=== PATIENT | male | born 1995 | race Caucasian/White ===

== ENCOUNTER 2024-12-11 14:56 | Outpatient (CLI) | payer MEDICAID ==
--- NOTE | 2024-12-11 16:15 | RADIOLOGY REPORT ---
EXAM: MR MRI LOWER EXTREMITY LEFT knee INDICATION: PAIN IN LEFT KNEE, INSTABILITY OF L KNEE JOINT TECHNIQUE: Multiplanar and multisequence MR imaging of the left ankle was performed in the absence of gadolinium contrast. COMPARISON: None FINDINGS: There is a bucket-handle tear in the free edge of the medial meniscus. There is also horizontal tear in the posterior horn of the medial meniscus extending into the posterior root of the medial meniscus The lateral meniscus is intact The posterior cruciate ligament is bowed but intact The anterior cruciate ligament is thickened and increased in signal quadriceps and patellar tendons a re intact Trace joint effusion The hyaline cartilage surfaces covering the patellofemoral joint are smooth. There are areas of edema present in the lateral femoral condyle, the lateral tibial plateau and the medial tibial plateau IMPRESSION: 1. There is a bucket-handle tear of the body of the medial meniscus and there is a horizontal tear in the posterior horn and root of the medial meniscus. 2. Partial tear of the anterior cruciate ligament 3. Bone bruising involving the lateral femoral condyle and the medial and lateral tibial plateaus
== END 2024-12-11 23:59 | disposition home or self-care (01) ==
LOC: MRI02 14:56
PROVIDERS: ATTEND Pediatrics Sports Medicine
DX: S83.512A Sprain of anterior cruciate ligament of left knee, initial encounter (principal); M25.562 Pain in left knee; M25.362 Other instability, left knee; X58.XXXA Exposure to other specified factors, initial encounter; Y93.89 Activity, other specified; Y92.89 Other specified places as the place of occurrence of the external cause; Y99.8 Other external cause status
CPT/HCPCS: 73721